=== PATIENT | male | born 1955 | race Caucasian/White ===

== ENCOUNTER 2019-11-13 10:51 | Emergency (ER) | payer MEDICARE, SELFPAY ==
[2019-11-13 11:00] VITALS: BP 167/97; PULSE 87; RESP 14; TEMP 36.4; O2SAT 97; BMI 28.0
--- NOTE | 2019-11-13 11:04 | DI.RAD.S_ITS ---
PROCEDURE: XR WRIST LT MIN 3V INDICATIONS: wrist pain after fall,swelling TECHNIQUE: 3 views of the wrist were acquired. COMPARISON: None. FINDINGS: Bones: Possible nondisplaced fracture through the base of the ulnar styloid process.. No suspicious bony lesions. 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 Soft tissues: No suspicious soft tissue calcifications. IMPRESSION: Possible nondisplaced ulnar styloid process fracture. Dictated by: Jeanette Moura MD, PhD on 11/13/2019 at 11:23 Approved by: Jeanette Moura MD, PhD on 11/13/2019 at 11:25
--- NOTE | 2019-11-13 11:44 | ED.UPPEXIN ---
HPI - Extremity Injury (Upper) <EM Spear - Last Filed: 11/13/19 14:56> General Chief Complaint: Extremity Injury, Upper Stated Complaint: Fall, left wrist pain Time Seen by Provider: 11/13/19 11:09 Source: patient and family Mode of arrival: Ambulatory Limitations: no limitations History of Present Illness HPI narrative: The patient is a 64-year-old male who presents with his with history of hypertension, high triglycerides with a chief complaint of left wrist pain. He had a fall yesterday on a boat, with a FOOSH injury. He is right-hand dominant. He states that it hurts on the back of his hand. He took a muscle relaxer for his back yesterday and that did not help the pain. He has not applied ice taken Tylenol or Motrin. He is concerned about a fracture. He complains of decreased range of motion all blank. He denies any previous injuries to his left wrist. Related Data Allergies Allergy/AdvReac Type Severity Reaction Status Date / Time No Known Drug Allergies Allergy Verified 11/13/19 11:03 Review of Systems <EM Spear - Last Filed: 11/13/19 14:56> Review of Systems Narrative: GENERAL: Denies chills, fatigue, malaise, fever, sweats. HEENT: Denies sinus pain, ear pain, sore throat, difficulty swallowing, dizziness. RESPIRATORY: Denies dyspnea, cough, wheezing, hemoptysis, sputum. CARDIOVASCULAR: Denies chest pain, palpitations, orthopnea, edema, GASTROINTESTINAL: Denies nausea, vomiting, abdominal pain, diarrhea, constipation, melena. : Denies dysuria, frequency, incontinence, hematuria, urinary retention. MUSCULOSKELETAL: See HPI SKIN: Denies rash, skin lesions, or other NEUROLOGIC: Denies weakness, headache, numbness, change in speech, confusion, seizures, incoordination. PSYCHIATRIC: No concerning psychosocial issues. 12 point review of systems is negative except for those stated above Patient History <EM Spear - Last Filed: 11/13/19 14:56> Medical History (Updated 11/13/19 @ 12:27 by EM Spear) High triglycerides (Acute) Hyperlipidemia (Acute) Hypertension (Acute) Social History Smoking Status: Unknown if ever smoked Smoking Status: Unknown if ever smoked alcohol intake frequency: a few times a week Substance Use Type: does not use Exam <EM Spear - Last Filed: 11/13/19 14:56> Narrative Exam Narrative: GENERAL: This is a well-nourished, well-developed patient, in no acute distress HEAD: Atraumatic. Normocephalic. No temporal or scalp tenderness. EYES: Pupils equal round and reactive. Extraocular motions intact. No scleral icterus. No injection or drainage. ENT: Nose without bleeding, purulent drainage or septal hematoma.. Airway patent. NECK: Trachea midline. No JVD or lymphadenopathy. Supple, nontender, no meningeal signs. CARDIOVASCULAR: Regular rate and rhythm without murmurs, gallops, or rubs. RESPIRATORY: No cough. No increased respiratory effort. No accessory muscle use. EXTREMITIES: Pain to palpation distal left wrist, on both sides. No snuffbox tenderness to palpation. Positive left radial pulse. Capillary refill less than 2 seconds all fingers left hand. Decreased range of motion on flexion extension. Patient declines pain to snuffbox palpation. No laceration or abrasion noted. No pain to palpation of left shoulder or elbow. NEURO: AOx3. SKIN: No rash or erythema on visible skin Initial Vital Signs Initial Vital Signs: Vital Signs Temperature 97.6 F 11/13/19 11:00 Pulse Rate 87 11/13/19 11:00 Respiratory Rate 14 11/13/19 11:00 Blood Pressure 167/97 H 11/13/19 11:00 Pulse Oximetry 97 11/13/19 11:00 <Umang Vallecillo MD - Last Filed: 11/13/19 18:28> Initial Vital Signs Initial Vital Signs: Vital Signs Temperature 97.6 F 11/13/19 11:00 Pulse Rate 87 11/13/19 11:00 Respiratory Rate 14 11/13/19 11:00 Blood Pressure 167/97 H 11/13/19 11:00 Pulse Oximetry 97 11/13/19 11:00 Procedures <EM Spear - Last Filed: 11/13/19 14:56> Orthopedic Splinting/Casting Injury #1: Side: left Upper Extremity Injury Location: wrist Upper Extremity Immobilizer: sling/shoulder immobilizer, sugar tong splint and Jerome wrap Post splinting neuro exam: intact Post splinting vascular exam: intact Placed by: Nursing Scores <EM Spear - Last Filed: 11/13/19 14:56> GCS Kalin coma scale eye opening: Spontaneous [place] coma scale verbal response: Orientated [place] coma scale motor response: Obey commands Kal[place] coma scale total score: 15 Course <EM Spear - Last Filed: 11/13/19 14:56> Orders Ordered: ED Orders 11/13/19 11:04 XR wrist LT min 3V Stat Vital Signs Vital signs: Vital Signs - 8 hr 11/13/19 11:00 11/13/19 13:21 Temperature 97.6 F Pulse Rate 87 82 Respiratory Rate 14 16 Blood Pressure 167/97 H Pulse Oximetry 97 98 <Umang Vallecillo MD - Last Filed: 11/13/19 18:28> Orders Ordered: ED Orders 11/13/19 11:04 XR wrist LT min 3V Stat Vital Signs Vital signs: Vital Signs - 8 hr 11/13/19 11:00 11/13/19 13:21 Temperature 97.6 F Pulse Rate 87 82 Respiratory Rate 14 16 Blood Pressure 167/97 H Pulse Oximetry 97 98 MDM - Extremity Injury (Upper) <EM Spear - Last Filed: 11/13/19 14:56> Imaging Data Extremity x-ray #1: Radiologist's Impression: [address] [place] [id number] XRay Report Signed Patient: Dannie Trevino SMR#: [id number] : 4Acct:[id number] Age/Sex: 64 / MDate of Service: 11/13/19 Loc: ED Accession Number: [id number] Procedure: XR wrist LT min 3V Ordering Provider: Umang Vallecillo MD PROCEDURE: XR WRIST LT MIN 3V INDICATIONS: wrist pain after fall,swelling TECHNIQUE: 3 views of the wrist were acquired. COMPARISON: None. FINDINGS: Bones: Possible nondisplaced fracture through the base of the ulnar styloid process.. No suspicious bony lesions. 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 Soft tissues: No suspicious soft tissue calcifications. IMPRESSION: Possible nondisplaced ulnar styloid process fracture. Dictated by: Jeanette Moura MD, PhD on 11/13/2019 at 11:23 Approved by: Jeanette Moura MD, PhD on 11/13/2019 at 11:25 [facility] Narrative Medical decision making narrative: The patient is a 64-year-old male who presents with a chief complaint of an isolated left wrist injury. X-rays concerning for an ulnar styloid fracture, so the patient was placed in a sugar-tong splint. Radiology states that fracture notices possible, however does correlate with patient's pain so we will treat him as though he is fractured. He declined pain medication. I discussed at length rest ice compression elevation as well as follow-up with primary care provider and her [facility]. Patient repeatedly declined pain on snuffbox palpation. Thus he was not placed in a thumb spica. He is neurovascularly intact. I discussed at length coming back to the emergency department for any acute concerns such as decreased circulation was hand. Patient denies any other pain on exam. Patient has no questions or concerns upon discharge and states understanding of return precautions as well as follow-up care. Discharge Plan Departure Patient Disposition: Home Clinical Impression: Fracture of ulnar styloid Qualifiers: Encounter type: initial encounter Fracture type: closed Fracture alignment: nondisplaced Laterality: left Qualified Code(s): S52.615A - Nondisplaced fracture of left ulna styloid process, initial encounter for closed fracture Discharge Date/Time: 11/13/19 13:21 Instructions: DI for Wrist Fracture, How To Perform RICE (Rest, Ice, Compress, Elevate), How to Take Care of Your Splint Activity Restrictions/Additional Instructions: Thank you for trusting us with your today. As discussed, your x-rays concerning for an ulnar styloid fracture. We have placed you in a splint. Please follow-up with [facility] as discussed. I have given you the contact information below. Please use rest ice compression elevation as well as [id number] medications as needed and able Please come back to emergency department for any acute concerns such as decreased circulation to your fingers. I have also given contact information [facility] special education resource room teacher, who can help you identify primary care provider Referrals: [facility] [Provider Group] [facility] [Outside] Zane Broderick MD [Primary Care Provider] - <Umang Vallecillo MD - Last Filed: 11/13/19 18:28> Cosign ED Attending Cosignature Attestation: I was immediately available in the department for consultation. This documentation has been reviewed and I agree with assessment and plan. Supervised by Umang Vallecillo MD
[2019-11-13 13:21] VITALS: PULSE 82; RESP 16; O2SAT 98
== END 2019-11-13 13:21 | disposition home or self-care (01) ==
PROVIDERS: Emergency Provider Nurse Practitioner Family; PCP Specialist
DX: S52.615A Nondisplaced fracture of left ulna styloid process, initial encounter for closed fracture (principal); W19.XXXA Unspecified fall, initial encounter; I10 Essential (primary) hypertension
CPT/HCPCS: 29105; 73110; 99283

== ENCOUNTER → 2021-05-03 10:01 | Outpatient (CLI) | payer MEDICARE, SELFPAY ==
[2021-05-03 12:34] LABS: Thyroid Stimulating Hormone 5.83 uIU/mL (0.47-4.68)
== END ==
PROVIDERS: PCP Specialist; Referring Provider Specialist; Visit Provider Specialist
DX: E03.9 Hypothyroidism, unspecified (principal)
CPT/HCPCS: 36415; 84443

== ENCOUNTER → 2021-06-25 10:10 | Outpatient (CLI) | payer MEDICARE, SELFPAY ==
[2021-06-25 12:33] LABS: Thyroid Stimulating Hormone 1.72 uIU/mL (0.47-4.68)
== END ==
PROVIDERS: PCP Specialist; Referring Provider Specialist; Visit Provider Specialist
DX: E03.9 Hypothyroidism, unspecified (principal)
CPT/HCPCS: 36415; 84443